=== PATIENT | female | born 1950 | race African-American/Black ===

== ENCOUNTER 2017-04-03 15:00 | Outpatient (RCR) | payer OTHER | END 2017-04-05 | disposition home or self-care (01) | LOC: PTY 15:00 | DX: M54.42 Lumbago with sciatica, left side (principal); M54.41 Lumbago with sciatica, right side; G89.29 Other chronic pain | CPT/HCPCS: 97035; 97110; 97161; G0283 ==

== ENCOUNTER 2017-05-02 15:15 | Outpatient (RCR) | payer OTHER | END 2017-05-05 | disposition home or self-care (01) | LOC: PTY 15:15 | DX: M54.42 Lumbago with sciatica, left side (principal); M54.41 Lumbago with sciatica, right side; Z85.118 Personal history of other malignant neoplasm of bronchus and lung | CPT/HCPCS: 97035; 97110; 97140; G0283 ==

== ENCOUNTER 2017-05-16 09:30 | Outpatient (RCR) | payer OTHER | END 2017-06-05 | disposition home or self-care (01) | LOC: PTY 09:30 | DX: M54.42 Lumbago with sciatica, left side (principal); M54.41 Lumbago with sciatica, right side; G89.29 Other chronic pain | CPT/HCPCS: 97035; 97110; G0283 ==

== ENCOUNTER 2017-07-04 15:12 | Outpatient (RCR) | payer OTHER | END 2017-07-05 | disposition home or self-care (01) | LOC: PTY 15:12 | DX: M54.42 Lumbago with sciatica, left side (principal); M54.41 Lumbago with sciatica, right side; G89.29 Other chronic pain | CPT/HCPCS: 97035; 97110; G0283 ==

== ENCOUNTER 2017-08-01 15:15 | Outpatient (RCR) | payer OTHER | END 2017-08-05 | disposition home or self-care (01) | LOC: PTY 15:15 | DX: M54.42 Lumbago with sciatica, left side (principal); M54.41 Lumbago with sciatica, right side; R26.9 Unspecified abnormalities of gait and mobility | CPT/HCPCS: 97035; 97110; G0283 ==

== ENCOUNTER 2017-08-15 15:29 | Outpatient (RCR) | payer OTHER | END 2017-09-05 | disposition home or self-care (01) | LOC: PTY 15:29 | DX: M54.42 Lumbago with sciatica, left side (principal); M54.41 Lumbago with sciatica, right side | CPT/HCPCS: 97035; 97110; G0283 ==